=== PATIENT | male | born 1985 | race Caucasian/White ===

== ENCOUNTER 2018-09-16 14:47 | Emergency (ER) | payer OTHER ==
[~2018-09-16] VITALS: Ht 177.8 cm; Wt 106.8 kg
[2018-09-16 14:51] VITALS: BP 127/76
[2018-09-16] MEDS ORDERED: TOBR5DRO2 LEFTEYE (15:01)
--- NOTE | 2018-09-16 16:52 | NUR ---
CALLED THE OR MULTIPLE TIMES TO HAVE THIS PT. 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 PT. NEVER RETURNED
== END 2018-09-16 15:20 | disposition home or self-care (01) ==
LOC: ER 14:48
DX: H57.89 Other specified disorders of eye and adnexa (principal); Z77.21 Contact with and (suspected) exposure to potentially hazardous body fluids; Z86.19 Personal history of other infectious and parasitic diseases
CPT/HCPCS: 99283

== ENCOUNTER 2021-05-11 13:48 | Outpatient (CLI) | payer BC ==
[~2021-05-11 13:48] MED LIST: TOBR5DRO2 LEFTEYE
== END 2021-05-11 23:59 | disposition home or self-care (01) ==
LOC: VAS 13:48
PROVIDERS: ATTEND Orthopaedic Surgery
DX: I82.402 Acute embolism and thrombosis of unspecified deep veins of left lower extremity (principal); M79.662 Pain in left lower leg
CPT/HCPCS: 93971